=== PATIENT | female | born 1970 | race Caucasian/White ===

== ENCOUNTER → 2017-02-23 | Outpatient (CLI) | payer BC | END | disposition home or self-care (01) | LOC: C.PAPS 13:25 | PROVIDERS: ATTEND Physician Assistant | DX: Z12.4 Encounter for screening for malignant neoplasm of cervix (principal) ==

== ENCOUNTER → 2017-02-23 | Outpatient (CLI) | payer BC ==
[2017-02-23 13:11] LABS: HEMATOCRIT 40.6 % (37-47); MEAN CELL VOLUME 87.3 fL (80-100); MEAN CORPUSCULAR HEMOGLOBIN 29.7 pg (25-34); MEAN PLATELET VOLUME 11.5 fL (7.4-10.4); PLATELET COUNT 217 K/uL (130-400); RED BLOOD COUNT 4.65 M/uL (4.2-5.4); WHITE BLOOD COUNT 7.04 K/uL (4.8-10.8)
[2017-02-23 13:46] LABS: PREG INTERNAL NEGATIVE QC NEG CLEAR BACKGROUND; PREG INTERNAL POSITIVE QC POS CONTROL LINE
== END | disposition home or self-care (01) ==
LOC: C.LAB1850 12:14
PROVIDERS: ATTEND Physician Assistant
DX: N93.9 Abnormal uterine and vaginal bleeding, unspecified (principal)

== ENCOUNTER → 2017-08-20 | Outpatient (CLI) | payer BC, OTHER ==
--- NOTE | 2017-08-20 08:33 | DIAGNOSTIC IMAGING REPORT ---
R KNEE 4 OR MORE HISTORY: 46 years-old Female RIGHT KNEE PAIN acute right knee pain without reported trauma COMPARISON: None available TECHNIQUE: AP view of the bilateral knees with sunrise, AP axial and lateral views of the right knee FINDINGS: No acute fracture or dislocation identified. Minimal tricompartmental marginal spurring about the right knee with mild medial and patellofemoral compartment narrowing. Mild medial compartment narrowing is also seen on the left. There is no acute fracture, dislocation, or intra-articular foreign body. Soft tissues are within normal limits. Small right knee joint effusion. IMPRESSION: 1. Small knee joint effusion without acute fracture or dislocation. 2. Degenerative changes as above. The above report was generated using voice recognition software. It may contain grammatical, syntax or spelling errors. Electronically signed by: Jose Luis M.D. 08/20/2017 8:31 AM Dictated Date/Time: 08/20/2017 8:27 AM
== END | disposition home or self-care (01) ==
LOC: C.RDSM 08:11
PROVIDERS: ATTEND Family Medicine
DX: M25.561 Pain in right knee (principal); M25.461 Effusion, right knee

== ENCOUNTER → 2017-08-24 | Outpatient (CLI) | payer OTHER | END | disposition home or self-care (01) | LOC: C.RDSM 12:50 | PROVIDERS: ATTEND Orthopaedic Surgery | DX: M12.261 Villonodular synovitis (pigmented), right knee (principal) ==

== ENCOUNTER 2018-08-26 05:51 | Observation (INO) ==
--- NOTE | 2018-07-30 15:45 | PAT Medication Instructions ---
Medication Instructions Date of Service July 30, 2018 Home Medications Gabapentin 1 dose PO TID levothyroxine [Levoxyl] 125 mcg PO QAM multivitamin [Multiple Vitamins] 1 tab PO DAILY naproxen sodium [Aleve] 220 mg PO UD PRN rizatriptan 1 tab PO UD PRN ASK your surgeon for instructions naproxen sodium [Aleve] 220 mg PO UD PRN DO NOT take the morning of surgery multivitamin [Multiple Vitamins] 1 tab PO DAILY Take morning of surgery With a small sip of water, OTHERWISE NOTHING TO EAT OR DRINK AFTER MIDNIGHT: Gabapentin 1 dose PO TID levothyroxine [Levoxyl] 125 mcg PO QAM rizatriptan 1 tab PO UD PRN (if needed) Take evening before surgery Gabapentin 1 dose PO TID rizatriptan 1 tab PO UD PRN (if needed) Other Notes If you have any questions please call us at [phone] or [phone] or [phone] or [phone]
--- NOTE | 2018-07-31 16:01 | Anesthesiology Consultation ---
Date of Service July 31, 2018 Assessment & Plan (1) Encounter for pre-operative examination: TEST AM DOS Chart Review Chart Review: Acceptable Risk for Surgery and Patient seen in Pre Admission Testing Teaching & Discussion Instructed NPO after midnight before surgery, except medications with 15 cc of water. Medication instructions provided according to the PAT guidelines. History Surgery Operation Date: 08/26/18 07:30 Proposed Procedures p Robotic Total Laparoscopic Hysterectomy - Aliya Ramirez MD, FACOG Height/Weight Height: 5 ft 5 in Weight: 80.9 kg Allergies Allergy/AdvReac Type Severity Reaction Status Date / Time No Known Allergies Allergy Unverified 07/25/18 14:57 Medications Home Medications Medication Instructions Recorded Confirmed Last Taken Gabapentin 1 dose PO TID 07/25/18 07/25/18 Unknown levothyroxine [Levoxyl] 125 mcg PO QAM 07/25/18 07/25/18 07/25/18 multivitamin [Multiple Vitamins] 1 tab PO DAILY 07/25/18 07/25/18 Unknown naproxen sodium [Aleve] 220 mg PO UD PRN 07/25/18 07/25/18 Unknown rizatriptan 1 tab PO UD PRN 07/25/18 07/25/18 Unknown Past Medical History Medical History Hypothyroidism Menstrual periods irregular REASON FOR UPCOMING SURGERY Migraines Trouble swallowing HAS HAD MULTIPLE CHOKING EPISODES REQUIRING HEIMLICH. ENDOSCOPY SCHEDULED FOR AUGUST 09 Past Family History Family History Father Family history of lung cancer Past Surgical History Surgical History History of colonoscopy History of right knee surgery History of tubal ligation Past Anesthesia History No Hx of Anesthesia Complications and No Family Hx of Anesthesia Complications History of PONV No Motion Sickness Screening History of Motion Sickness: No Social History Smoking Status: Never smoker Do You Dip or Chew Tobacco: No Hx Alcohol Use: Yes Alcohol type: wine alcohol intake frequency: a few times a month Hx Substance Use: No substance use type: does not use Exercise / Class Metabolic Activity II 4-5 Yardwork/Stairs/Walk up hill (denies CP or SOB with stairs) Review of Systems Pt denies any recent chest pain, shortness of breath, palpitations, cough, fever or URI. Physical Exam Vital Signs BP: 107/73 P: 53bpm SPO2: 96% RA T: 98.3 F R: 12 ENMT Mouth: + dental restorations (single crown); no chipped teeth and no loose teeth Thyromental Distance: > or= 3.5 Finger Breadths (3.5) Mallampati Class: II Neck normal visual inspection; neck extension not limited Respiratory normal respiratory effort Auscultation: lungs clear to auscultation bilaterally Cardiovascular Rate/Rhythm: regular rate and regular rhythm Heart Sounds: no murmur Extremities: no edema Testing Laboratory Results 07/31/18 16:10 Blood Type A Positive 07/31/18 16:10 Antibody Screen NEGATIVE 07/31/18 16:10
[2018-07-31 16:24] LABS: Basophils # (auto) 0.01 K/uL (0-0.2); Basophils % (auto) 0.1 %; Eosinophils # (auto) 0.08 K/uL (0-0.5); Eosinophils % (auto) 1.2 %; Hematocrit (blood only) 42.2 % (37-47); Hemoglobin 14.6 g/dL (12.0-16.0); Immature Granulocytes # (auto) 0.02 K/uL (0.00-0.02); Immature Granulocytes % (auto) 0.3 %; Lymphocytes % (auto) 35.1 %; Mean Corpuscular Hgb Conc 34.6 g/dL (32-36); Mean Corpuscular Volume 87.4 fL (80-100); Mean Platelet Volume 11.6 fL (7.4-10.4); Monocytes # (auto) 0.58 K/uL (0.11-0.59); Monocytes % (auto) 8.5 %; Neutrophils # (auto) 3.75 K/uL (1.4-6.5); Neutrophils % (auto) 54.8 %; Platelet Count 219 K/uL (130-400); RDW Coefficient of Variation 12.9 % (11.5-14.5); RDW Standard Deviation 41.2 fL (36.4-46.3); Red Blood Count 4.83 M/uL (4.2-5.4); White Blood Count 6.84 K/uL (4.8-10.8)
[2018-08-26] MEDS ORDERED: LACTATED RINGER'S 1,000 ML IV SCH ×2 (06:00→09:30)
[2018-08-26] MEDS ORDERED: CEFAZOLIN 2000MG 2,000 MG/15 ML SYR IV SCH (06:00)
[2018-08-26] MEDS ORDERED: LR 15ML/HR IV SCH (06:00)
[2018-08-26] MEDS ORDERED: MIDAZOLAM HCL 1 MG/ML 2ML VIAL ONE (06:47)
[2018-08-26] MEDS ORDERED: DEXAMETHASONE SOD INJ 4 MG/ML VIAL ONE (06:47)
[2018-08-26] MEDS ORDERED: ONDANSETRON INJ 2 MG/ML 2 ML VIAL ONE (06:47)
[2018-08-26] MEDS ORDERED: PROPOFOL IV EMULSION 10 MG/ML 20 ML VIAL IV ONE (06:48)
[2018-08-26] MEDS ORDERED: fentaNYL citrate 100 MCG/2 ML VIAL ONE (06:48)
[2018-08-26] MEDS ORDERED: ROCURONIUM BROMIDE 10 MG/ML 5 ML VIAL ONE ×2 (06:48→08:28)
[2018-08-26] MEDS ORDERED: LIDOCAINE HCL 2% 2 ML VIAL/AMP(20MG/ML) INFIL ONE (06:48)
[2018-08-26] MEDS ORDERED: ACETAMINOPHEN 1000 MG/100 ML IV IV ONE (06:52)
[2018-08-26] MEDS ORDERED: BUPIVACAINE 0.5 % 5 MG/1 ML MPF 30ML VIAL ONE (06:57)
[2018-08-26] MEDS ORDERED: METHYLENE BLUE 0.5% 10 ML VIAL ONE (06:57)
--- NOTE | 2018-08-26 07:17 | History & Physical Bridge Note ---
Date of Service August 26, 2018 History & Physical Bridge Note I have examined the patient, reviewed the History & Physical and in the interval since the performance of the History & Physical I have noted the following changes of clinical significance: no changes noted
[2018-08-26] MEDS ORDERED: KETOROLAC 30 MG/ML VIAL IV PRN ×2 (07:28→09:25)
[2018-08-26] MEDS ORDERED: ONDANSETRON INJ 2 MG/ML 2 ML VIAL IV PRN ×2 (07:28→09:25)
[2018-08-26] MEDS ORDERED: ATROPINE SULFATE 0.1 MG/ML 10ML SYR IV PRN (07:28)
[2018-08-26] MEDS ORDERED: NEOSTIGMINE METHYLSULFATE 5 MG/5 ML SYR ONE (07:57)
[2018-08-26] MEDS ORDERED: GLYCOPYRROLATE 0.2 MG/ML VIAL ONE (07:57)
[2018-08-26] MEDS ORDERED: ACETAMINOPHEN 325 MG TAB PO PRN (09:25)
[2018-08-26] MEDS ORDERED: IBUPROFEN 600 MG TAB PO PRN (09:25)
[2018-08-26] MEDS ORDERED: OXYCODONE/ACETAMINOPHEN 5mg/325mg TAB PO PRN ×2 (09:25)
--- NOTE | 2018-08-26 09:25 | Post Operative Brief Note ---
Immediate Post Op Note v1 Date of Surgery August 26, 2018 Pre & Post Diagnosis Operation Date: 08/26/18 07:30 Pre-Op Diagnosis: Menometrorrhagia, AUB Post-Op Diagnosis: Menometrorrhagia, AUB Procedure Operation Date: 08/26/18 07:30 Actual Procedures p Robotic assisted Total Laparoscopic Hysterectomy with bilateral salpingectomie s, cystoscopy(Not Applicable) - Aliya Ramirez MD, FACOG Surgeon Aliya Ramirez MD, FACOG School Bus Operator RN Estimated Blood Loss 5 Findings Consistent with Post-Op Diagnosis (uterus top normal, irregular serosal contour, tubes and ovaries normal, liver edge normal, cysto findings with normal bladder filling, normal ureteral jets. ) Fluids 700 Drains Shelton Catheter Anesthesia Type General Complications none Disposition Accompanied Patient To Recovery: No Disposition: Recovery Room
[2018-08-26] MEDS: HYDROmorphone INJ 1 MG/ML SYRINGE IV PRN ×2 (09:49→09:54)
--- NOTE | 2018-08-26 10:08 | Gynecologic Progress Note ---
Date of Service August 26, 2018 Assessment & Plan (1) Post-operative state: checked on [place] PDMP and no issues identified. Results & Data Vital Signs (Past 12 Hours) Vital Signs Temp Pulse Pulse Resp BP BP Pulse Ox 08/26/18 10:00 53 L 16 106/71 100 08/26/18 09:50 57 L 16 117/61 100 08/26/18 09:40 56 L 16 119/78 100 08/26/18 09:33 97.7 F 62 16 104/77 100 08/26/18 06:25 97.9 F 58 L 18 133/75 99
--- NOTE | 2018-08-26 10:15 | Anesthesiology Progress Note ---
Date of Service August 26, 2018 Anesthesia Post Procedure Vital Signs Vital Signs: Temp Pulse Pulse Resp BP BP Pulse Ox 08/26/18 10:10 36.4 C L 62 16 114/68 99 08/26/18 10:00 53 L 16 106/71 100 08/26/18 09:50 57 L 16 117/61 100 08/26/18 09:40 56 L 16 119/78 100 08/26/18 09:33 36.5 C 62 16 104/77 100 08/26/18 06:25 36.6 C 58 L 18 133/75 99 Transfer of Care Handoff Completed per policy Notes Mental Status: alert / awake / arousable Patient Amnestic to Procedure: Yes Nausea / Vomiting: adequately controlled Pain: adequately controlled Airway Patency, RR, SpO2: stable & adequate BP & HR: stable & adequate Hydration State: stable & adequate Anesthetic Complications: no major complications apparent
--- NOTE | 2018-08-26 10:19 | Operative Report ---
DATE OF OPERATION: 08/26/2018 PREOPERATIVE DIAGNOSES: 1. Abnormal uterine bleeding. 2. Menometrorrhagia. POSTOPERATIVE DIAGNOSES: 1. Abnormal uterine bleeding. 2. Menometrorrhagia. PROCEDURES: 1. Total laparoscopic hysterectomy. 2. Bilateral salpingectomies. 3. Cystoscopy. 4. Robotic assistance. SURGEON: Aliya Ramirez MD GUIDE ESCORT: RN. INTRAVENOUS FLUIDS: 700 mL. ESTIMATED BLOOD LOSS: 5 mL. ANESTHESIA: General. FINDINGS: Uterus top normal size with evidence of subserosal fibroids. Normal ovaries and tubes bilaterally. Normal liver edge. Cystoscopy findings with normal bladder filling and normal ureteral jets. INDICATIONS: A 47-year-old with a history of menometrorrhagia, abnormal uterine bleeding who desired definitive surgical management after workup and discussion of alternatives. DESCRIPTION OF PROCEDURE: The patient was taken to the operating room and identified. After adequate general anesthesia was obtained, she was placed in the dorsal lithotomy position and prepped and draped in the usual sterile fashion. A weighted speculum was placed to visualize the cervix, which was grasped on its anterior lip with an Allis clamp. A Shelton catheter under sterile conditions had already been placed. The 0 Vicryl single interrupted suture was placed at 3 o'clock position. The cervix was sequentially dilated using Hegar dilators to 21. The uterus sounded to 10 cm. The VCare uterine manipulator device was gently placed through the cervical os into the uterine cavity, and the balloon was inflated. The cup was tied down with suture material, and then the stabilizing cup was placed. The weighted speculum was then removed. Attention was then turned to the patient's abdomen. A supraumbilical skin incision was made with a scalpel, and the Veress needle was placed intraperitoneally with an opening pressure of 7 mmHg. A CO2 pneumoperitoneum was created. The 12 mm optical trocar was then placed under direct visualization into the peritoneal cavity. The patient was placed in steep Trendelenburg. The pelvis and abdomen were inspected with the findings as noted above, and 2 da Junaid trocar sites left and right of the midline were created by first creating skin incisions and then placing under direct visualization da Junaid trocars. The bowel was teased away from the planned operative site using a blunt probe. The laparoscope and camera were removed. The da Junaid robot then was brought to the patient's bedside. The appropriate instrument arms were connected to the appropriate trocars. The camera was introduced. The Monopolar park was brought through instrument arm #1, and a fenestrated bipolar through an instrument arm #2. Surgeon then went to the console. Using manipulation from below, the right infundibulopelvic ligament, round ligament, and fallopian tube complex were identified. The ureter was seen coursing well below the planned operative site. The utero-ovarian ligament was coagulated and transected first. The remaining broad ligament attachments and then the round ligament attachments were then coagulated and transected. The leaves of the peritoneum were opened up anteriorly and posteriorly, and the uterine artery was skeletonized after the bladder was pushed well away from the planned operative site. The uterine artery pedicle was then coagulated. Attention was then turned to the left utero-ovarian round ligament, fallopian tube complex, which was identified, and the ureter was seen coursing well below the planned operative site. It was taken down in a similar fashion, and the anterior and posterior leaves of the broad ligament were opened up into. The bladder flap was developed from left side across the midline. The uterine artery vessels were skeletonized. They were then coagulated and transected. The cardinal ligament attachments were further coagulated and transected. The attention was returned to the right side where the uterine artery pedicle was recoagulated and transected as well as the cardinal ligament attachments. The anterior and posterior planned colpotomy site was identified. It was cleared away of all possible bladder tissue anteriorly. The colpotomy was then begun. It was begun posteriorly and wrapped around anteriorly for complete transection of the specimen. The specimen was brought out vaginally. The bilateral fallopian tubes were then identified and resected and also passed vaginally as specimen. The 2-0 V-Loc 90 suture was brought in vaginally, and the #1 instrument arm was replaced with the needle funeral car driver. The cuff was then closed in a routine fashion using the suture material, and back stitches were placed. The sponge that was maintaining the pneumoperitoneum and the vagina was removed, and there was no evidence of an air leak. All the incision sites were inspected, and small bleeding sites were coagulated using the bipolar cautery. The #1 instrument had been undocked and the suture material had been removed via that trocar site, and the pelvis was irrigated with the suction tech brazer tester through that trocar site. Pneumoperitoneum was let down, and there was no evidence of active bleeding. At this point, the laparoscopic procedure was terminated. All the instruments were removed. The camera was removed. The trocars were left in place, but the da Junaid was undocked. The fireboat operator then performed a cystoscopy with the findings as noted above. A new Shelton catheter was placed under sterile conditions after the urethra was reprepped with Betadine. At this point, the da Junaid robot was moved away from the patient's bedside. The trocars were then all removed, and the pneumoperitoneum had already been released. The fascia was reapproximated at the supraumbilical skin incision site with 0 Vicryl. All skin incisions were injected with Marcaine and then closed in a subcuticular fashion with 4-0 Vicryl and dressed with Dermabond. The patient was returned to the supine position, was awoke from anesthesia, and transferred to recovery room in stable condition. All sponge, lap, needle counts were correct x2. I attest to the content of the Intraoperative Record and any orders documented therein. Any exceptions are noted below. JERMAINE
[2018-08-26] MEDS: SIMETHICONE 80 MG CHEW PO PRN ×2 (15:32→17:54)
--- NOTE | 2018-08-27 08:43 | Discharge Summary ---
Date of Service August 26, 2018 Date of discharge August Discharge Data Procedures Performed Operation Date: 08/26/18 07:30 Actual Procedures p Robotic assisted Total Laparoscopic Hysterectomy with bilateral salpingectomy,(Not Applicable) - Aliya Ramirez MD, ANNALEE s Cystoscopy(Not Applicable) - Aliya Ramirez [place], [facility] [place] (1) Abnormal uterine bleeding (AUB): (2) Menometrorrhagia: 47 yo female who has completed her childbearing with abnormal uterine bleeding, menometrorrhagia who desired definitive surgical management in the form of hysterectomy. Please see her admission H&P for more details. She underwent the above stated procedures without incident and was stable for discharge to home on her postop day #0. She was tolerating a regular diet, am bulating and voiding without difficulty and had good pain control. She was given discharge instructions and appropriate pain medicine prescriptions and advised to followup in about 2 weeks for postoperative visit.
== END 2018-08-26 19:15 | disposition home or self-care (01) ==
LOC: 4N 05:51 → ASU 05:51